=== PATIENT | female | born 1985 | race Asian ===

== ENCOUNTER 2017-11-18 12:05 | Inpatient (IN) | payer MEDICAID ==
[2017-11-18] MEDS ORDERED: Dinoprostone* 10 MG VAG.SUPP VAGINAL ONE (13:45)
[2017-11-18 14:40] LABS: ABS Basophils 0 10^3/ul (0-0.2); ABS Eosinophils 0 10^3/ul (0-0.6); ABS Lymphocytes 1.8 10^3/ul (1.0-4.8); ABS Monocytes 0.5 10^3/ul (0-0.8); ABS Neutrophils 5.8 10^3/ul (1.5-7.7); ABS Nucleated RBC 0 10^3/ul; Eosinophil % 0.4 % (0-6); Hematocrit 37 % (35-47); Hemoglobin 12.4 g/dl (12.0-16.0); Lymphocyte % 22.1 % (25-47); Mean Corpuscular HGB Conc 33 g/dl (31-36); Mean Corpuscular Hemoglobin 28 pg (27-31); Mean Corpuscular Volume 85 fL (80-97); Nucleated Red Blood Cells % 0; Platelet Count 161 10^3/ul (150-450); Red Cell Distribution Width 14 % (10.5-15); White Blood Count 8.2 10^3/ul (3.5-10.8)
--- NOTE | 2017-11-18 14:41 | HP ---
General Information - Reason for Visit induction for cholestasis of 37 0/7 weeks - General Information Maternal Age: 32 Grav: 1 Para: 0 SAB: 0 IEA: 0 Estimated Due Date: 12/09/17 Determined By: LMP Maternal Blood Type and Rh: B Negative - Results this Serology/RPR Result: Non-Reactive Rubella Result: Immune HBsAg Result: Negative HIV Result: Negative GBS Culture Result: Negative Past Medical History Delivery History: See Records Pertinent Past Medical History: See Records Pertinent Past Surgical History: See Records Pertinent Family History: See Records - Antepartal Records Antepartal Records: Reviewed, Complicated by: - A1DM cholestasis of Review of Systems Constitutional: Comfortable CV Complaint: No Respiratory: Shortness of Breath: No Gastrointestinal: No Nausea/Vomiting, Normal Bowel Movement Genitourinary: No Dysuria, No Bleeding, No Leaking Fluid Musculoskeletal: No Complaint Neurological: No Headache Movement: Normal Exam Allergies/Adverse Reactions: Allergies No Known Allergies Allergy (Verified 11/18/17 12:48) 62" T : 98.9 P :82 BP: 107/74 RR: 18 - Measurements Height: 5 ft 2 in Weight: 141 lb Weight in lbs: 141.496201 Body Mass Index (BMI): 25.7 Pre- Weight: 136 lb 6.4 oz Weight Gained This : 4.6 lbs and 0 ozs - Exam Breast: Breast Exam Deferred CVA: No CVA Tenderness Extremities: No Edema Heart: Normal Rhythm/Heart Sounds HEENT: No Significant Findings Lungs: Clear Bilaterally Rectal: Rectal Exam Deferred Reflexes: DTR 2+ Thyroid: No Thyromegaly - Abdominal Exam Abdomen Exam: Non-Tender - Ultrasound/Biophysical Profile Ultrasound Status: Not Done Targeted Exam Findings Cervical Exam: 1cm Effacement: Thick Station: -2 Presenting Part: Vertex Membrane Status: Intact Bleeding/Discharge: None EFM Findings - External Monitor Findings Baseline Heart Rate: 150 External Monitor Findings: Accelerations Present, No Pattern of Variable or Late Decelerations, Variability Moderate Contractions: Irregular Assessment/Plan - Assessment Pt 32 yo G1 presents for induction at 37 weeks with cholestasis. - Plan Plan: Admit - Anticipate Vaginal Delivery
[2017-11-18 14:48] LABS: INR 0.85 (0.77-1.02)
[2017-11-19] MEDS ORDERED: Dinoprostone* 10 MG VAG.SUPP VAGINAL ONE (03:12)
[2017-11-19] MEDS: Oxytocin in LR* 20 UNITS/1,000 ML BAG IVPB SCH (15:59)
[2017-11-19] MEDS ORDERED: OBEPIDURAL* 250 ML EPIDURAL ONE (20:31)
[2017-11-19] MEDS ORDERED: Sodium Citrate/Citric Acid* 15 ML UDC PO PRN (20:49)
[2017-11-19] MEDS ORDERED: Phenylephrine IV* 40 MCG/ML 10 ML SYRINGE IV PUSH PRN (20:49)
[2017-11-19] MEDS ORDERED: Famotidine TAB* 20 MG PO PRN (20:49)
[2017-11-19] MEDS ORDERED: EPHEDrine (Pressors)* 50 MG/ML VIAL IV PUSH PRN (20:49)
[2017-11-20] MEDS: Oxytocin in LR* 20 UNITS/1,000 ML BAG IVPB SCH (04:41)
[2017-11-20] MEDS ORDERED: Misoprostol TAB* 100 MCG PO ONE (07:10)
[2017-11-20] MEDS ORDERED: Famotidine IV* 10 MG/ML 2 ML (20 mg) IV PRN (14:27)
[2017-11-20] MEDS ORDERED: Oxytocin in LR* 20 UNITS/1,000 ML BAG IVPB SCH (16:00)
[2017-11-20] MEDS ORDERED: Ondansetron INJ* 2 MG/ML VIAL IV ONE (20:40)
[2017-11-21] MEDS: OBEPIDURAL* 250 ML EPIDURAL SCH ×2 (00:36→00:38)
[2017-11-21] MEDS ORDERED: ceFOXitin 2 GM IVPREMIX* 2 GM/50 ML BAG ONE ×2 (04:08→10:34)
[2017-11-21] MEDS ORDERED: fentaNYL* 50 MCG/ML 2 ML VIAL (100 MCG VIAL) ONE (04:58)
[2017-11-21] MEDS ORDERED: OXYTOCIN* 10 UNITS/ML 1 ML VIAL ONE ×2 (05:03→13:07)
[2017-11-21] MEDS ORDERED: Sodium Bicarbonate 8.4% IV* 50 ML VIAL ONE (05:10)
[2017-11-21] MEDS ORDERED: Lidocaine 2% EPI 1:200000 MPF*10-20 ML VIAL ONE (05:10)
[2017-11-21] MEDS ORDERED: Morphine PF AMP (0.5MG/ML)* 5 MG/10 ML AMP ONE (05:10)
[2017-11-21] MEDS ORDERED: Nalbuphine* 10 MG/ML 1 ML VIAL IV PRN (05:57)
[2017-11-21] MEDS ORDERED: Ketorolac INJ* 30 MG/ML 1 ML VIAL IV PRN (05:57)
[2017-11-21] MEDS ORDERED: Naloxone* 0.4 MG/ML 1 ML VIAL IV PRN ×2 (05:57)
[2017-11-21] MEDS ORDERED: Acetaminophen TAB* 325 MG PO PRN ×2 (05:57→22:00)
[2017-11-21] MEDS ORDERED: HYDROmorphone INJ1* 1 MG/ML SYRINGE IV PRN (05:57)
[2017-11-21] MEDS ORDERED: diPHENhydraMINE IV* 50 MG/ML 1 ml VIAL (BENADRYL) IV PRN ×2 (05:57)
[2017-11-21] MEDS ORDERED: Glycerin ADULT SUPP PR PRN (05:58)
[2017-11-21] MEDS ORDERED: Dibucaine 1% 28.35 GM TUBE PR PRN (05:58)
[2017-11-21] MEDS ORDERED: Witch Hazel PAD* JAR TOPICAL PRN (05:58)
[2017-11-21] MEDS ORDERED: Ketorolac INJ* 30 MG/ML 1 ML VIAL ONE (06:02)
[2017-11-21] MEDS: Simethicone TAB* 80 MG TAB.CHEW PO SCH ×4 (09:00→22:50)
[2017-11-21] MEDS: oxyCODONE/Acetamin 5/325 MG* TAB PO PRN ×3 (09:00→22:49)
[2017-11-21] MEDS: Docusate CAP* 100 MG PO SCH ×3 (09:00→22:50)
[2017-11-21] MEDS: Misoprostol TAB* 200 MCG ONE ×2 (09:40→09:51)
[2017-11-21] MEDS: fentaNYL* 50 MCG/ML 2 ML VIAL (100 MCG VIAL) ONE ×2 (09:57→10:11)
[2017-11-21] MEDS: Carboprost Tromethamine* 250 MCG INJ ONE ×2 (10:13→10:16)
[2017-11-21 10:19] LABS: ABS Basophils 0 10^3/ul (0-0.2); ABS Eosinophils 0 10^3/ul (0-0.6); ABS Lymphocytes 1.1 10^3/ul (1.0-4.8); ABS Monocytes 1.4 10^3/ul (0-0.8); ABS Neutrophils 16.4 10^3/ul (1.5-7.7); ABS Nucleated RBC 0 10^3/ul; Eosinophil % 0 % (0-6); Hematocrit 17 % (35-47); Mean Corpuscular HGB Conc 33 g/dl (31-36); Mean Corpuscular Hemoglobin 28 pg (27-31); Mean Corpuscular Volume 86 fL (80-97); Mean Platelet Volume 10.6 um3 (7.4-10.4); Nucleated Red Blood Cells % 0.2; Platelet Count 115 10^3/ul (150-450); Red Blood Count 1.98 10^6/ul (4.00-5.40); Red Cell Distribution Width 14 % (10.5-15)
[2017-11-21 10:21] LABS: Hemoglobin 5.6 g/dl (12.0-16.0)
[2017-11-21] MEDS: Oxytocin in LR* 40 UNITS/2,000 ML BAG IVPB ONE ×2 (10:35→11:25)
[2017-11-21 10:59] LABS: Platelet Count 121 10^3/ul (150-450)
[2017-11-21 11:15] LABS: Schistocytes ABSENT
[2017-11-21] MEDS ORDERED: Methylergonovine INJ* 0.2 MG/ML 1ML AMP ONE (13:08)
[2017-11-21 15:08] LABS: ABS Basophils 0 10^3/ul (0-0.2); ABS Eosinophils 0 10^3/ul (0-0.6); ABS Monocytes 1.1 10^3/ul (0-0.8); ABS Neutrophils 13.6 10^3/ul (1.5-7.7); ABS Nucleated RBC 0 10^3/ul; Eosinophil % 0 % (0-6); Hematocrit 25 % (35-47); Hemoglobin 8.5 g/dl (12.0-16.0); Lymphocyte % 6.4 % (25-47); Mean Corpuscular HGB Conc 34 g/dl (31-36); Mean Corpuscular Hemoglobin 28 pg (27-31); Mean Corpuscular Volume 84 fL (80-97); Nucleated Red Blood Cells % 0; Red Blood Count 3.02 10^6/ul (4.00-5.40); Red Cell Distribution Width 15 % (10.5-15)
[2017-11-21 15:29] LABS: EGFR Non-African American 111.6 (>60)
[2017-11-21 15:41] LABS: Mean Platelet Volume 10.3 um3 (7.4-10.4); Platelet Count 69 10^3/ul (150-450)
[2017-11-21 15:44] LABS: ABS Basophils 0 10^3/ul (0-0.2); ABS Neutrophils 12.2 10^3/ul (1.5-7.7); Monocytes % 5 % (0-7)
[2017-11-21] MEDS ORDERED: Zolpidem TAB* 5 MG PO PRN (22:00)
[2017-11-22] MEDS: oxyCODONE/Acetamin 5/325 MG* TAB PO PRN ×2 (02:56→11:11)
[2017-11-22] MEDS ORDERED: Ibuprofen TAB* 600 MG PO PRN (06:00)
[2017-11-22 06:35] LABS: ABS Basophils 0 10^3/ul (0-0.2); ABS Eosinophils 0 10^3/ul (0-0.6); ABS Lymphocytes 1.6 10^3/ul (1.0-4.8); ABS Monocytes 0.8 10^3/ul (0-0.8); ABS Neutrophils 9.3 10^3/ul (1.5-7.7); ABS Nucleated RBC 0 10^3/ul; Eosinophil % 0.3 % (0-6); Hematocrit 26 % (35-47); Hemoglobin 8.6 g/dl (12.0-16.0); Lymphocyte % 13.5 % (25-47); Mean Corpuscular HGB Conc 34 g/dl (31-36); Mean Corpuscular Hemoglobin 29 pg (27-31); Mean Corpuscular Volume 85 fL (80-97); Mean Platelet Volume 9.7 um3 (7.4-10.4); Nucleated Red Blood Cells % 0; Platelet Count 81 10^3/ul (150-450); Red Blood Count 3.01 10^6/ul (4.00-5.40); Red Cell Distribution Width 15 % (10.5-15); White Blood Count 11.7 10^3/ul (3.5-10.8)
[2017-11-22] MEDS: Docusate CAP* 100 MG PO SCH ×3 (08:43→21:19)
[2017-11-22] MEDS: Ferrous Gluconate TAB* 324 MG TAB PO SCH ×2 (08:43→21:19)
[2017-11-22] MEDS: Simethicone TAB* 80 MG TAB.CHEW PO SCH ×4 (08:43→21:19)
--- NOTE | 2017-11-22 09:09 | OP ---
DATE OF OPERATION: 11/21/17 - ROOM #101 DATE OF : 85 SURGEON: Ruel Melendrez MD ELECTRONICS MANUFACTURER: Angelica Villa MD ANESTHESIA: Epidural. PRE-OP DIAGNOSIS: Intrauterine at 37 weeks with hepatic cholestasis with arrest of dilation in labor. POST-OP DIAGNOSIS: Intrauterine at 37 weeks with hepatic cholestasis with arrest of dilation in labor. OPERATIVE PROCEDURE: Primary low-transverse section. ESTIMATED BLOOD LOSS: 500 cc. SPECIMEN SENT TO PATHOLOGY: Cord blood. IV FLUIDS: She received 2 L of IV crystalloid fluid. URINE OUTPUT: Clear. FINDINGS: Delivery of a female with head in the transverse occiput left position. Weight was 6 pounds 9 ounces, Apgars were 8 and 9. The placenta was grossly intact. The uterus was within normal limits as was adnexa, bowel and bladder. There were no complications during the procedure. DESCRIPTION OF PROCEDURE: The patient was taken to the operating room where she was identified. She was placed on operating table, where an epidural anesthetic was obtained without difficulty. She was then placed in the supine position with a leftward tilt, prepped and draped in the normal sterile fashion. A Pfannenstiel skin incision was then made with a knife and carried through to the underlying layer of fascia. The fascia was nicked in the midline and extended laterally with curved Michaud scissors. The fascia was then grasped anteriorly and inferiorly with Daryl clamps and dissected off sharply from the rectus muscle. The rectus muscle was in the midline bluntly. The peritoneum was identified, grasped with pickups, entered sharply with Metzenbaum scissors, and extended superiorly, inferiorly sharply. A bladder blade was inserted into the patient's abdomen. A bladder flap was created using Metzenbaum scissors over which the bladder blade was then reinserted. A lower transverse uterine incision was made with a knife, extended laterally with bandage scissors. The infant's head was then grasped and delivered atraumatically. The cord was clamped and cut after the body was delivered and the infant was handed off to the awaiting director radiation oncology. Cord bloods were obtained. The uterus was then removed manually, exteriorized. Placenta was then removed manually. The uterine cavity was then cleaned with sponge laps. Sponge laps were then removed from the uterus. The uterine incision was then closed using 0 Polysorb suture in a running locked fashion with a second imbricating layer of 0 Polysorb suture with good hemostasis noted. The uterus was now returned to the patient's abdomen. The gutters were then cleared of all clot and debris using moist laparotomy sponges. All the sponges were and instruments were removed from the patient's abdomen. The peritoneum was then closed using 3-0 Polysorb suture in a running fashion. The fascia was closed using 0 Polysorb suture in a running fashion. The Dante's layer was closed using 3-0 Polysorb suture interrupted stitches. The skin was closed with 4-0 Monocryl subcuticular stitch. The patient tolerated the procedure well. Sponge , lap, and needle counts were correct x2. She was then transferred to the recovery room area in stable condition. [id number]/[facility] #: [id number] LACIE
[2017-11-22 10:48] LABS: White Blood Count 15.7 10^3/ul (3.5-10.8)
[2017-11-22] MEDS: Ibuprofen TAB* 600 MG PO SCH ×2 (14:54→21:18)
[2017-11-23] MEDS: Ibuprofen TAB* 600 MG PO SCH ×3 (05:49→18:01)
[2017-11-23 07:21] LABS: Hematocrit 23 % (35-47); Hemoglobin 8.2 g/dl (12.0-16.0); Mean Corpuscular HGB Conc 35 g/dl (31-36); Mean Corpuscular Hemoglobin 29 pg (27-31); Mean Corpuscular Volume 84 fL (80-97); Mean Platelet Volume 10.2 um3 (7.4-10.4); Platelet Count 104 10^3/ul (150-450); Red Blood Count 2.79 10^6/ul (4.00-5.40); Red Cell Distribution Width 15 % (10.5-15); White Blood Count 10.5 10^3/ul (3.5-10.8)
[2017-11-23] MEDS: Docusate CAP* 100 MG PO SCH ×3 (08:26→21:57)
[2017-11-23] MEDS: Ferrous Gluconate TAB* 324 MG TAB PO SCH ×2 (08:26→21:57)
[2017-11-23] MEDS: Simethicone TAB* 80 MG TAB.CHEW PO SCH ×4 (08:26→21:57)
[2017-11-23] MEDS: oxyCODONE/Acetamin 5/325 MG* TAB PO PRN ×2 (08:29→21:58)
[2017-11-23] MEDS ORDERED: RHO D Immune Globulin (HUMAN)* 300 MCG = 1,500 I.U. INJ IM ONE (15:08)
[2017-11-23] MEDS: Calcium Carbonate CHEW TAB* 500 MG (TUMS) PO PRN ×2 (17:57→19:21)
[2017-11-24] MEDS: Ibuprofen TAB* 600 MG PO SCH ×2 (05:30→13:57)
[2017-11-24 08:23] VITALS: BP 138/76
--- NOTE | 2017-11-24 09:53 | PTEDU ---
Patient Name: MARGARITO TURNER MARGARITO TURNER selected video: Never Ever Shake a Baby to view on 11/24/2017 at 9:52:35 AM from [facility] [id number]
[2017-11-24] MEDS: Simethicone TAB* 80 MG TAB.CHEW PO SCH ×2 (10:19→13:57)
[2017-11-24] MEDS: Ferrous Gluconate TAB* 324 MG TAB PO SCH (10:19)
[2017-11-24] MEDS: Docusate CAP* 100 MG PO SCH ×2 (10:19→13:57)
--- NOTE | 2017-11-24 10:24 | PTEDU ---
Patient Name: MARGARITO TURNER MARGARITO TURNER selected video: BBOB: Nurturing Your Gorgeous &Growing Baby by to view on 11/24/2017 at 10:24:02 [id number]
--- NOTE | 2017-11-24 11:19 | PTEDU ---
Patient Name: MARGARITO TURNER MARGARITO TURNER selected video: BBOB: Bonding Through Infant Massage to view on 11/24/2017 at 11:19:[address] [id number]
== END 2017-11-24 14:30 | disposition home or self-care (01) | DRG 540 ==
LOC: MCHOBOUT 12:05 → MCHOB 13:48
PROVIDERS: ADMIT Obstetrics & Gynecology; ATTEND Obstetrics & Gynecology
PROC: 4A1HXCZ Monitoring of Products of Conception, Cardiac Rate, External Approach (ICD-10-PCS; principal; 2017-11-18)
PROC: 10D00Z1 Extraction of Products of Conception, Low, Open Approach (ICD-10-PCS; 2017-11-21)
PROC: 30233N1 Transfusion of Nonautologous Red Blood Cells into Peripheral Vein, Percutaneous Approach (ICD-10-PCS; 2017-11-21)
DX: O26.62 Liver and biliary tract disorders in childbirth (principal); K83.1 Obstruction of bile duct; O62.1 Secondary uterine inertia; O24.429 Gestational diabetes mellitus in childbirth, unspecified control; Z3A.37 37 weeks gestation of pregnancy; Z37.0 Single live birth
CPT/HCPCS: 36415; 76815; 80048; 82330; 84132; 84460; 85025; 85027; 85049; 85060; 85362; 85384; 85461; 85610; 85730; 86850; 86900; 86901; 86922; 86927; 90686; A9270-GY; J0694; J1885; J2210; J2405; J2590; J2790; J3010; P9012; P9017; P9040; S0191